=== PATIENT | male | born 1955 | race Caucasian/White ===

== ENCOUNTER 2017-12-04 05:53 | Inpatient (IN) | payer BC, OTHER ==
[2017-11-06 08:48] VITALS: BMI 36.0
--- NOTE | 2017-11-06 09:30 | PAT Medication Instructions ---
Service Date Nov 06, 2017. Current Home Medication List Albuterol Sulfate (Proair Respiclick), 2 PUFF INH Q4 PRN for SOB/Wheezing Allopurinol (Zyloprim), 300 MG PO QAM Atorvastatin (Lipitor), 20 MG PO QAM Betamethasone Dip (Betamethasone Dipropionat), 1 DOSE TOP UD PRN for prn Econazole Nitrate (Econazole Nitrate Crm 1% 30 Gm), 1 DOSE TOP UD PRN for prn Ferrous Sulfate (Iron), 1 TAB PO QAM Gabapentin (Neurontin), 600 MG PO TID Insulin Human Lispro (Insulin Humalog Pump ), 1 EA N/A UD Losartan Potassium (Cozaar), 100 MG PO QAM Magnesium (Magnesium 250 mg), 1 TAB PO HS Morphine Sulfate (Morphine Sulfate ER), 15 MG PO BID Multiple Vitamins W/ Minerals (Multivitamin Adults 50+), 1 TAB PO QAM [place]-3 Fatty Acids (Fish Oil), 1,200 MG PO BID Omeprazole (Prilosec), 40 MG PO QAM Vitamin E (Bhuh-K-Zafuj 1000), 2,000 UNITS PO QAM Warfarin Sod (Jantoven), 7.5 MG PO SUN, T,TH,SAT Warfarin Sodium (Warfarin Sodium), 3.75 TAB PO MWF Medication Instructions For Your Scheduled Surgery -Continue basal rate as usual, DO NOT BOLUS THE MORNING OF SURGERY: Insulin Human Lispro (Insulin Humalog Pump ), 1 EA N/A UD -Contact your prescriber for instructions for: Warfarin Sod (Jantoven), 7.5 MG PO SUN, T,TH,SAT Warfarin Sodium (Warfarin Sodium), 3.75 TAB PO MWF - Hold the following medications 2 weeks prior to surgery: Vitamin E (Ykil-E-Ctcvu 1000), 2,000 UNITS PO QAM [place]-3 Fatty Acids (Fish Oil), 1,200 MG PO BID - Hold the following medications 24 hours prior to surgery: Betamethasone Dip (Betamethasone Dipropionat), 1 DOSE TOP UD PRN for prn Econazole Nitrate (Econazole Nitrate Crm 1% 30 Gm), 1 DOSE TOP UD PRN for prn - Hold the following medications the morning of surgery: Multiple Vitamins W/ Minerals (Multivitamin Adults 50+), 1 TAB PO QAM Losartan Potassium (Cozaar), 100 MG PO QAM Ferrous Sulfate (Iron), 1 TAB PO QAM - Take the following medications the morning of surgery with a sip of water: Omeprazole (Prilosec), 40 MG PO QAM Allopurinol (Zyloprim), 300 MG PO QAM Atorvastatin (Lipitor), 20 MG PO QAM Morphine Sulfate (Morphine Sulfate ER), 15 MG PO BID Albuterol Sulfate (Proair Respiclick), 2 PUFF INH Q4 PRN for SOB/Wheezing (if needed, and bring with you to the hospital) Gabapentin (Neurontin), 600 MG PO TID - Take the following medications as scheduled the night before surgery: Morphine Sulfate (Morphine Sulfate ER), 15 MG PO BID Albuterol Sulfate (Proair Respiclick), 2 PUFF INH Q4 PRN for SOB/Wheezing (if needed) Magnesium (Magnesium 250 mg), 1 TAB PO HS Gabapentin (Neurontin), 600 MG PO TID If you have any questions please call us at [phone] or [phone] or [phone]
[2017-11-06 10:15] LABS: BASO % 0.5 %; BASO ABS # 0.04 K/uL (0-0.2); EOS % 2.7 %; HEMATOCRIT 43.1 % (42-52); HEMOGLOBIN 14.8 g/dL (14.0-18.0); IG# 0.02 K/uL (0.00-0.02); LYMPH % 24.9 %; LYMPH ABS # 1.82 K/uL (1.2-3.4); MEAN CELL VOLUME 89.6 fL (80-100); MEAN CORPUSCULAR HEMOGLOBIN 30.8 pg (25-34); MEAN CORPUSCULAR HGB CONC 34.3 g/dl (32-36); MEAN PLATELET VOLUME 9.4 fL (7.4-10.4); MONO ABS # 0.51 K/uL (0.11-0.59); NEUT % 64.6 %; NEUT ABS # 4.72 K/uL (1.4-6.5); PLATELET COUNT 207 K/uL (130-400); RED CELL DISTRIBUTION WIDTH CV 13.1 % (11.5-14.5); RED CELL DISTRIBUTION WIDTH SD 42.8 fL (36.4-46.3); WHITE BLOOD COUNT 7.31 K/uL (4.8-10.8)
[2017-12-04] VITALS (15 sets, daily range): BP systolic 121–170; BP diastolic 65–84; PULSE 67–93; TEMP 36.3–37; O2SAT 94–98; BMI 36.0; BMI 36.7
[~2017-12-04] VITALS: Ht 170.2 cm; Wt 106.3 kg
[~2017-12-04 05:53] MED LIST: ALBU18002 INH; ALLO300T2 PO; ATOR-22 PO; DPRSO15 TOP; FERR1TAB61 PO; GABA-113 PO; INSPMPHMLG; LOSA1TAB38 PO; MAGN250T3 PO; MRPSR15 PO; MULT-916 PO; OMEG120013 PO; PRLSR20 PO; SPCCR30 TOP; WARF-285 PO; WARF7.5T4 PO; [UNRECOGNIZED DRUG - CODE] PO
[2017-12-04] MEDS ORDERED: CEFAZOLIN 2000MG IV PUSH 10 ML IV SCH (06:00)
[2017-12-04] MEDS ORDERED: LACTATED RINGER'S 1000ML 1,000 ML IV SCH (06:00)
[2017-12-04] MEDS ORDERED: lovenox SQ (06:21)
[2017-12-04 06:53] LABS: PTT PATIENT 29.7 SECONDS (21.0-31.0)
[2017-12-04] MEDS ORDERED: SODIUM CHLORIDE 0.9% PF 50 ML VIAL ONE (07:05)
[2017-12-04] MEDS ORDERED: BACITRACIN 50000 UNIT VIAL ONE (07:05)
[2017-12-04] MEDS ORDERED: LIDOCAINE HCL 2% 2 ML VIAL (20MG/ML) ONE (07:06)
[2017-12-04] MEDS ORDERED: DEXAMETHASONE SOD INJ 4 MG/ML VIAL ONE (07:06)
[2017-12-04] MEDS ORDERED: GLYCOPYRROLATE INJ 0.2 MG/ML VIAL ONE ×2 (07:06→15:39)
[2017-12-04] MEDS ORDERED: ONDANSETRON INJ 2 MG/ML 2 ML VIAL ONE ×2 (07:06→15:39)
[2017-12-04] MEDS ORDERED: MIDAZOLAM HCL 1 MG/ML 2ML VIAL ONE (07:06)
[2017-12-04] MEDS ORDERED: PROPOFOL IV EMULSION 10 MG/ML 20 ML VIAL IV ONE (07:06)
[2017-12-04] MEDS ORDERED: NEOSTIGMINE METHYLSULFATE 1 MG/ML 10ML VIAL ONE (07:06)
[2017-12-04] MEDS ORDERED: HYDROmorphone INJ 2 MG/ML SYR/VIAL ONE (07:07)
[2017-12-04] MEDS ORDERED: LARYING-O-JET KIT (LTA) ONE (07:07)
[2017-12-04] MEDS ORDERED: SODIUM CHLORIDE 0.9% INJ 10 ML VIAL ONE (07:07)
[2017-12-04] MEDS ORDERED: FENTANYL CITRATE INJ 50 MCG/1 ML 2 ML VIAL ONE (07:07)
[2017-12-04] MEDS ORDERED: NovoLIN-R INSULIN PER UNIT CHARGE ONE ×2 (07:16→07:17)
--- NOTE | 2017-12-04 07:23 | History & Physical Bridge Note ---
H&P Re-Evaluation Bridge Note: I have examined the patient, reviewed the History & Physical and in the interval since the performance of the History & Physical I have noted the following changes of clinical significance: No changes noted
--- NOTE | 2017-12-04 07:24 | History and Physical ---
History & Physical Date Dec 04, 2017. Chief Complaint Neck and arm pain History of Present Illness The patient is a 62 year old male with complaints of neck and arm pain Past Medical/Surgical History Medical Problems: (1) Thoracic spinal stenosis Additional History Hepatic Disease: No Endocrine Disorder: No Kidney Disease: No Hypertension: Yes Heart Disease: No Bleeding Tendencies: No Infectious Diseases: No Allergies Coded Allergies: Diclofenac (Verified Allergy, Unknown, AFFECTED LIVER FUNCTION, 12/04/17) Penicillins (Verified Allergy, Unknown, RASH, 12/04/17) Azithromycin (Verified Adverse Reaction, Intermediate, when combined with voltaren had chemical hepatitis, 12/04/17) Meperidine (Verified Adverse Reaction, Unknown, SEVERE N/V, 12/04/17) Home Medications Scheduled Allopurinol (Zyloprim), 300 MG PO QAM Atorvastatin (Lipitor), 20 MG PO QAM Ferrous Sulfate (Iron), 1 TAB PO QAM Gabapentin (Neurontin), 600 MG PO TID Insulin Human Lispro (Insulin Humalog Pump ), 1 EA N/A UD Losartan Potassium (Cozaar), 100 MG PO QAM Magnesium (Magnesium 250 mg), 1 TAB PO HS Morphine Sulfate (Morphine Sulfate ER), 15 MG PO BID Multiple Vitamins W/ Minerals (Multivitamin Adults 50+), 1 TAB PO QAM [place]-3 Fatty Acids (Fish Oil), 1,200 MG PO BID Omeprazole (Prilosec), 40 MG PO QAM Vitamin E (Mktv-J-Lxhmf 1000), 2,000 UNITS PO QAM Warfarin Sod (Jantoven), 7.5 MG PO SUN, ,,SAT Warfarin Sodium (Warfarin Sodium), 3.75 TAB PO MWF [lovenox], SQ BID Scheduled PRN Albuterol Sulfate (Proair Respiclick), 2 PUFF INH Q4 PRN for SOB/Wheezing Betamethasone Dip (Betamethasone Dipropionat), 1 DOSE TOP UD PRN for prn Econazole Nitrate (Econazole Nitrate Crm 1% 30 Gm), 1 DOSE TOP UD PRN for prn Physical Examination Skin: warm/dry, no rash Eyes: normal inspection, EOMI, sclerae normal ENT: normal ENT inspection, pharynx normal Head: normocephalic, atraumatic Neck: supple, no adenopathy, trachea midline Respiratory/Chest: lungs clear, normal breath sounds, no respiratory distress Cardiovascular: regular rate, rhythm, no edema, no murmur Abdomen / GI: normal bowel sounds, non tender Back: normal inspection Extremities: normal inspection, normal range of motion Neurologic/Psych: no motor/sensory deficits, alert, normal reflexes, oriented x 3 Diagnosis Cervical spinal stenosis Plan of Treatment ACDF C3 4 with corpectomy of C5
[2017-12-04] MEDS ORDERED: CLINDAMYCIN 600 MG/54 ML D5W IV ONE (07:29)
[2017-12-04] MEDS ORDERED: ATROPINE SULFATE 0.1 MG/ML 5ML SYR IV PRN (07:30)
[2017-12-04] MEDS ORDERED: ONDANSETRON INJ 2 MG/ML 2 ML VIAL IV PRN (07:30)
[2017-12-04] MEDS ORDERED: NURSING VERBAL MED ORDER ONE ×2 (07:30→21:00)
[2017-12-04] MEDS ORDERED: EpHEDrine SULFATE INJ 50 MG/ML AMP IV PRN (07:30)
[2017-12-04] MEDS ORDERED: EpHEDrine SULFATE 50MG/5ML SYR ONE ×2 (07:49→09:17)
[2017-12-04] MEDS ORDERED: PHENYLEPHRINE 100MCG/ML 5ML SYR ONE (09:04)
[2017-12-04] MEDS ORDERED: FLOSEAL HEMOSTATIC MATRIX 5ML TOP ONE (09:31)
--- NOTE | 2017-12-04 09:34 | [facility] Operative Report ---
Operative Report Operative Date Dec 04, 2017. Pre-Operative Diagnosis Cervical Spinal Stenosis Post-Operative Diagnosis Cervical Spinal Stenosis Procedure(s) Performed #1 anterior cervical corpectomy C5. #2 anterior cervical discectomy C3 4. #3 anterior cervical arthrodesis C3 to C4 and C4 to C6. #4 placement peek cage 8 mm in height C3 4 and 23 mm height at C4 to C6. #5 placement of locally harvested morcellized autograft combined with ostial amp in the interbody cages. #6 application of herring plate and screws from C3 to C6. Surgeon Dr. Zamudio Sales And Marketing Professional Surgeon(s) Gaby Vidal PA-C Estimated Blood Loss 10 ml Findings Severe spinal stenosis Specimens None per surgeon Description of Procedure Patient was met with preoperatively case discussed all questions addressed. After informed consent obtained patient was taken to the operative suite underwent intubation placed in a supine position the Kevin table with the head in [place] headholder. All bony prominences well-padded eyes inspected to ensure no external pressure placed upon them. This point the anterior cervical spine prepped draped nostril fashion. With the assistance of fluoroscopy identified the C3 4 disc space and a longitudinal incision was placed along the right anterior aspect of the cervical spine overlying this region. Sharp dissection with the assistance of bipolar cautery was performed onto an exposing the anterior cervical spine from C3 to see 6. Self-retaining retractors placed. Then performed a complete discectomy of C5 6 out to the uncovertebral joints bilaterally followed by C45. Then placed distracting pins and C4 and C6 to distract across the C5 vertebral body. Complete corpectomies and performed including removal of all posterior annular fibers and longitudinal ligament and bilateral foraminotomies. Endplates were then burred to subcortical bleeding bone and a 23 mm peek cage filled with locally harvested morcellized autograft and ostial amp bone graft tapped in position. Distracting apparatus was removed. We proceeded to see 34. Again a complete discectomy performed out to the uncovertebral joints bilaterally. I removed all posterior inner fibrous longitudinal ligament bilateral foraminotomies performed. An plates burred to subcortical bleeding bone and a 8 mm peek cage filled with locally harvested morcellized autograft and ostial amp bone graft tapped in position. All distracting apparatus was removed osteophytes burred to smooth cortical surface and a herring plate and screws applied with the assistance of fluoroscopy. Incision was in copious irrigated explored to ensure there is no damage to surrounding structures remaining bleeding. A 15 round BRAIN drain inserted. Incision was then closed with 2 Vicryl in the fascia and 4 Monocryl for final skin closure. Steri-Strips sterile dressings placed. Patient we can take PACU stable condition. Please note Gaby Glover was present throughout the entire procedure involved in patient positioning complex portions of the surgery and final skin closure. I attest to the content of the Intraoperative Record and any orders documented therein. Any exceptions are noted below.
[2017-12-04] MEDS ORDERED: NALOXONE HCL 0.4 MG/1 ML VIAL/CARP IV PRN (09:45)
[2017-12-04] MEDS ORDERED: DO NOT ADMINISTER PNEUMOCOCCAL VACCINE PRN (09:45)
[2017-12-04] MEDS ORDERED: RACEPINEPHRINE 2.25% NEBU SOLN 0.5 ML VIAL INH PRN (09:45)
[2017-12-04] MEDS ORDERED: LORAZEPAM 0.5 MG TAB PO PRN (09:45)
[2017-12-04] MEDS ORDERED: DO NOT ADMINISTER FLU VACCINE PRN (09:45)
[2017-12-04] MEDS ORDERED: MAGNESIUM HYDROXIDE SUSP 30 ML UDC PO PRN (09:45)
[2017-12-04] MEDS ORDERED: HYDROmorphone INJ 1 MG/ML SYR IV PRN (09:45)
[2017-12-04] MEDS ORDERED: ACETAMINOPHEN IV 100 ML IV PRN (09:45)
[2017-12-04] MEDS ORDERED: DEXAMETHASONE INJ 8 MG in SYRINGE 0 ML IV PRN (09:45)
[2017-12-04] MEDS ORDERED: DiphenhydrAMINE HCL 50 MG/ML VIAL IV PRN (09:45)
[2017-12-04] MEDS ORDERED: ROCURONIUM BROMIDE 10 MG/ML 5 ML VIAL IV ONE (09:54)
--- NOTE | 2017-12-04 09:54 | DIAGNOSTIC IMAGING REPORT ---
Cervical SPINE, INTRAOPERATIVE FLUOROSCOPY HISTORY: C3-C6 ACDF with C5 corpectomy. FLUOROSCOPY TIME: 13 seconds. FINDINGS: Intraoperative fluoroscopy was provided for the cervical spine. 2 fluoroscopic spot images were obtained. Anterior cervical discectomy and fusion from C3 through C6 with a C5 corpectomy. The hardware appears intact. IMPRESSION: Fluoroscopy provided for a C3-C6 ACDF.. Electronically signed by: Corwin Valenzuela M.D. 12/04/2017 9:53 AM Dictated Date/Time: 12/04/2017 9:52 AM
[2017-12-04] MEDS: FENTANYL CITRATE INJ 50 MCG/1 ML 2 ML VIAL IV PRN ×4 (10:08→10:24)
[2017-12-04] MEDS: HYDROmorphone INJ 1 MG/ML SYR IV PRN ×2 (10:28→10:34)
[2017-12-04] MEDS ORDERED: GLUCOSE 40% GEL 15 GM TUBE PO PRN (12:00)
[2017-12-04] MEDS ORDERED: GLUCOSE 10 TABS/TUBE PO PRN (12:00)
[2017-12-04] MEDS ORDERED: DEXTROSE 50% 50 ML SYR IV PRN (12:00)
[2017-12-04] MEDS ORDERED: ALBUTEROL HFA 8 GM INHALER INH PRN (12:00)
[2017-12-04] MEDS ORDERED: GLUCAGON FOR INJ 1 MG VIAL SQ PRN (12:00)
[2017-12-04] MEDS ORDERED: INSULIN HUMAN LISPRO (humaLOG) 100 UNITS/ML VIAL SC PRN (12:00)
[2017-12-04] MEDS ORDERED: PHARMACY GLYCEMIC MGMT CONSULT PRN (12:10)
--- NOTE | 2017-12-04 12:20 | Anesthesiology Progress Note ---
Anesthesia Post Op Note Date & Time Dec 04, 2017 at 12:20 Vital Signs Pain Intensity: 3 Vital Signs Past 12 Hours Date Time Temp Pulse Resp B/P (MAP) Pulse Ox O2 Delivery O2 Flow Rate FiO2 12/04/17 11:46 70 16 142/73 (96) 97 Humidified Oxygen 2.0 12/04/17 11:15 Nasal Cannula 2.0 Humidified Oxygen 12/04/17 11:15 37.0 73 14 149/66 96 Nasal Cannula 2.0 Humidified Oxygen 12/04/17 11:15 Nasal Cannula 2.0 12/04/17 11:00 55 12 133/61 97 Nasal Cannula 3 12/04/17 10:50 36.9 63 12 160/68 99 Nasal Cannula 3 12/04/17 10:40 77 15 150/71 99 Nasal Cannula 4 12/04/17 10:30 78 18 141/61 99 Nasal Cannula 4 12/04/17 10:20 58 12 148/70 99 Nasal Cannula 4 12/04/17 10:10 61 13 146/67 99 Oxymask 10 12/04/17 10:00 78 14 139/74 100 Oxymask 10 12/04/17 09:50 70 12 137/64 100 Oxymask 10 12/04/17 09:43 36.6 86 13 135/69 99 Oxymask 10 12/04/17 06:24 36.3 74 16 170/83 98 Room Air Notes Mental Status: alert / awake / arousable, participated in evaluation Pt Amnestic to Procedure: Yes Nausea / Vomiting: adequately controlled Pain: adequately controlled Airway Patency, RR, SpO2: stable & adequate BP & HR: stable & adequate Hydration State: stable & adequate Anesthetic Complications: no major complications apparent
--- NOTE | 2017-12-04 12:49 | Medical Consult ---
Consultation Date of Consultation: Dec 04, 2017. Attending Physician: David Zamudio D.O. Reason for Consultation: Post-op medical management History of Present Illness This is a 62yo M with a PMH of DM I, Factor V Leiden mutation (on coumadin, s/p IVF filter placement in 2014), DAHIANA, HTN, HLD, OA and cervical and thoracic spinal stenosis who is POD#0 s/p C3-C4 anterior cervical discectomy and fusion. Doing well post-operatively. Denies any back pain, fever, chills, CP, SOB, abd pain, nausea, vomiting, numbness/paresthesias of extremities or LE swelling.Follows with [facility] in [place] for insulin pump management. Follows with Dr. Elmore (cardio) for management of Factor V mutation and h/o PEs. Per chart review, Dr. Elmore was to discuss pre and post op anticoagulation management with Dr. Zamudio due to patient's hypercoagulable state. Patient last took warfarin 5 days ago. Past Medical/Surgical History Medical Problems: (1) Cervical spinal stenosis Status: Chronic (2) Chronic anticoagulation Status: Chronic (3) Chronic lower back pain Status: Chronic (4) DM I (diabetes mellitus, type I) Status: Chronic (5) Factor 5 Leiden mutation, heterozygous Status: Chronic (6) HLD (hyperlipidemia) Status: Chronic (7) HTN (hypertension) Status: Chronic (8) DAHIANA on CPAP Status: Chronic (9) Osteoarthritis Status: Chronic (10) Thoracic spinal stenosis Status: Chronic Surgical Problems: (1) S/P IVC filter Status: Chronic Family History Bleeding disorder Diabetes mellitus Hypertension Social History Smoking Status: Never Smoker Alcohol Use: occasionally Marital Status: Housing Status: lives with significant other Occupation Status: retired Allergies Coded Allergies: Diclofenac (Verified Allergy, Unknown, AFFECTED LIVER FUNCTION, 12/04/17) Penicillins (Verified Allergy, Unknown, RASH, 12/04/17) Azithromycin (Verified Adverse Reaction, Intermediate, when combined with voltaren had chemical hepatitis, 12/04/17) Meperidine (Verified Adverse Reaction, Unknown, SEVERE N/V, 12/04/17) Home Medications Reported Home Medications Medications Dose Route/Sig Max Daily Dose Days Date Category Dose Instructions [lovenox] 40 Mg SQ BID 12/04/17 Reported Iron (Ferrous Sulfate) 45 Mg Tab 1 Tab PO QAM 11/06/17 Reported Brqm-Z-Jseba 1000 (Vitamin E) 1,000 Unit Cap 2,000 Units PO QAM 11/06/17 Reported Econazole Nitrate Crm 1% 30 Gm (Econazole Nitrate) 90 Appln/30 Gm Cr 1 Dose TOP UD PRN 11/06/17 Reported Betamethasone Dipropionat (Betamethasone Dip) 45 Appln/15 Gm Oint 1 Dose TOP UD PRN 11/06/17 Reported Insulin Humalog Pump (Insulin Human Lispro) Pump 1 Ea N/A UD 11/06/17 Reported insulin pump Prilosec (Omeprazole) 20 Mg Capcr 40 Mg PO QAM 11/06/17 Reported Proair Respiclick (Albuterol Sulfate) 108 Mcg/Act Aer 2 Puff INH Q4 PRN 11/06/17 Reported Morphine Sulfate ER (Morphine Sulfate) 15 Mg Tabcr 15 Mg PO BID 11/06/17 Reported Multivitamin Adults 50+ (Multiple Vitamins W/ Minerals) 1 Tab Tab 1 Tab PO QAM 10/28/15 Reported Lipitor (Atorvastatin Calcium) 20 Mg Tab 20 Mg PO QAM 10/28/15 Reported Magnesium 250 mg (Magnesium) 1 Tab Tab 1 Tab PO HS 10/28/15 Reported Fish Oil ([place]-3 Fatty Acids) 1,200 Mg Cap 1,200 Mg PO BID 10/28/15 Reported Jantoven (Warfarin Sodium) 7.5 Mg Tab 7.5 Mg PO SUN, T,TH,SAT 10/28/15 Reported Warfarin Sodium 3 Mg Tab 3.75 Tab PO MWF 90 10/28/15 Reported Zyloprim (Allopurinol) 300 Mg Tab 300 Mg PO QAM 10/28/15 Reported Cozaar (Losartan Potassium) 100 Mg Tab 100 Mg PO QAM 10/28/15 Reported Neurontin (Gabapentin) 300 Mg Cap 600 Mg PO TID 10/28/15 Reported Current Inpatient Medications Current Inpatient Medications Medications (Trade) Dose Ordered Sig/Bud Route Start Time Stop Time Status Last Admin Dose Admin Cefazolin Sodium 10 ml @ 2.5 mls/min PREOP IV 12/04/17 06:00 12/04/17 18:00 Fentanyl Citrate (Fentanyl Inj) 25 mcg Q5M PRN IV 12/04/17 07:30 12/04/17 12:30 12/04/17 10:24 25 MCG Hydromorphone HCl (Dilaudid Inj) 0.5 mg Q5M PRN IV 12/04/17 07:30 12/04/17 12:30 12/04/17 10:34 0.5 MG Ondansetron HCl (Zofran Inj) 4 mg ONE PRN IV 12/04/17 07:30 12/04/17 12:30 Ephedrine Sulfate (EpHEDrine SULFATE INJ) 5 mg Q5M PRN IV 12/04/17 07:30 12/04/17 12:30 Atropine Sulfate (Atropine Sulfate 0.1mg/ml Inj) 0.5 mg Q1M PRN IV 12/04/17 07:30 12/04/17 12:30 Racepinephrine (Raccemic Epinephrine 2.25% 0.5ML Neb) 0.5 ml ONE PRN INH 12/04/17 09:45 12/04/17 23:59 Acetaminophen 100 ml @ 400 mls/hr Q8H PRN IV 12/04/17 09:45 01/03/18 09:44 Hydromorphone HCl (Dilaudid Inj) 0.5mg IV for moder... Q3H PRN IV 12/04/17 09:45 12/18/17 09:44 Magnesium Hydroxide (Milk Of Magnesia Susp) 30 ml DAILY PRN PO 12/04/17 09:45 01/03/18 09:44 Docusate Sodium (coLACE CAP) 100 mg BID PO 12/04/17 21:00 01/03/18 20:59 Ondansetron HCl (Zofran Inj) 4 mg Q6 PRN IV 12/04/17 09:45 01/03/18 09:44 Scopolamine (Transderm-Scop Patch) 1.5 mg Q3D@0900 TD 12/04/17 12:30 01/03/18 12:29 Clindamycin Phosphate 600 mg/ Dextrose 54 ml @ 100 mls/hr Q8H IV 12/04/17 16:00 12/05/17 08:33 Lorazepam (Ativan Tab) 0.5 mg Q8H PRN PO 12/04/17 09:45 01/03/18 09:44 Lorazepam 0.5 mg/ Syringe 1 ml @ 1 mls/min Q8H PRN IV 12/04/17 09:45 01/03/18 09:44 Diphenhydramine HCl (Benadryl Inj) 25 mg Q6H PRN IV 12/04/17 09:45 01/03/18 09:44 Pneumococcal Polysaccharide Vaccine 1 ea PRN PRN N/A 12/04/17 09:45 01/03/18 09:44 Influenza Virus Vacc Triv Types A&B 1 ea PRN PRN N/A 12/04/17 09:45 01/03/18 09:44 Sodium Chloride 1,000 ml @ 80 mls/hr [id number] IV 12/04/17 12:00 12/05/17 09:33 Oxycodone HCl (Roxicodone Immediate Rel Tab) 5mg for pain scale 4-6 1... Q4H PRN PO 12/04/17 09:45 12/18/17 09:44 Polyethylene (Miralax Powder Packet) 17 gm DAILY PO 12/06/17 09:00 01/05/18 08:59 Bisacodyl (Dulcolax Tab) 5 mg DAILY PRN PO 12/06/17 06:00 01/05/18 05:59 Bisacodyl (Dulcolax Supp) 10 mg DAILY PRN DE 12/06/17 06:00 01/05/18 05:59 Dexamethasone Sodium Phosphate 8 mg/Syringe 2 ml @ 1 mls/min ONE PRN IV 12/04/17 09:45 12/04/17 23:59 Naloxone HCl (Narcan Inj) 0.1 mg Q5M PRN IV 12/04/17 09:45 01/03/18 09:44 Miscellaneous (Remove Transderm-Scop Patch) 1 ea Q3D@0859 N/A 12/04/17 12:29 01/03/18 12:28 Miscellaneous Information (Check Scopolamine Patch Placement) 1 ea QS N/A 12/04/17 16:00 01/03/18 15:59 Allopurinol (Zyloprim Tab) 300 mg QAM PO 12/05/17 09:00 01/04/18 08:59 Atorvastatin Calcium (Lipitor Tab) 20 mg QAM PO 12/05/17 09:00 01/04/18 08:59 Gabapentin (Neurontin Tab) 600 mg TID PO 12/04/17 14:00 01/03/18 13:59 Losartan Potassium (coZAAR TAB) 100 mg QAM PO 12/05/17 09:00 01/04/18 08:59 Morphine Sulfate (Oramorph Sr Tab) 15 mg BID PO 12/04/17 21:00 12/18/17 20:59 Albuterol (Ventolin Hfa Inhaler) 2 puffs Q4H PRN INH 12/04/17 12:00 01/03/18 11:59 Pantoprazole Sodium (Protonix Tab) 40 mg QAM PO 12/05/17 09:00 01/04/18 08:59 Insulin Human Lispro (HumaLOG INSULIN PUMP) 1 ea ACHS N/A 12/04/17 12:00 01/03/18 11:59 Insulin Human Lispro (humaLOG) SLIDING SCALE PRN PRN SC 12/04/17 12:00 01/03/18 11:59 Glucose (Glucose 40% Gel) UD PRN PO 12/04/17 12:00 01/03/18 11:59 Glucose (Glucose Chew Tab) 1 tabs UD PRN PO 12/04/17 12:00 01/03/18 11:59 Glucagon (Glucagon Inj) 1 mg UD PRN SQ 12/04/17 12:00 01/03/18 11:59 Dextrose (Dextrose 50% 50ML Syringe) 50 ml UD PRN IV 12/04/17 12:00 01/03/18 11:59 Miscellaneous Information (Consult Glycemic Management Pharmacy) 1 ea UD PRN N/A 12/04/17 12:10 01/03/18 12:09 Review of Systems Ten systems reviewed and negative except as noted in the HPI. Physical Exam Date Time Temp Pulse Resp B/P (MAP) Pulse Ox O2 Delivery O2 Flow Rate FiO2 12/04/17 11:46 70 16 142/73 (96) 97 Humidified Oxygen 2.0 12/04/17 11:15 Nasal Cannula 2.0 Humidified Oxygen 12/04/17 11:15 37.0 73 14 149/66 96 Nasal Cannula 2.0 Humidified Oxygen 12/04/17 11:15 Nasal Cannula 2.0 12/04/17 11:00 55 12 133/61 97 Nasal Cannula 3 12/04/17 10:50 36.9 63 12 160/68 99 Nasal Cannula 3 12/04/17 10:40 77 15 150/71 99 Nasal Cannula 4 12/04/17 10:30 78 18 141/61 99 Nasal Cannula 4 12/04/17 10:20 58 12 148/70 99 Nasal Cannula 4 12/04/17 10:10 61 13 146/67 99 Oxymask 10 12/04/17 10:00 78 14 139/74 100 Oxymask 10 12/04/17 09:50 70 12 137/64 100 Oxymask 10 12/04/17 09:43 36.6 86 13 135/69 99 Oxymask 10 12/04/17 06:24 36.3 74 16 170/83 98 Room Air General Appearance: WD/WN, no apparent distress, + pertinent finding (Resting comfortably with c-collar in place) Head: normocephalic, atraumatic Eyes: normal inspection, PERRL, sclerae normal ENT: normal ENT inspection, hearing grossly normal, pharynx normal (moist mucous membranes ) Neck: + pertinent finding (C collar in place. BRAIN drain observed with sanguinous output. ) Respiratory/Chest: chest non-tender, lungs clear, normal breath sounds, no respiratory distress, no accessory muscle use Cardiovascular: regular rate, rhythm, normal peripheral pulses, + systolic murmur Abdomen/GI: non tender, soft, no organomegaly Extremities/Musculoskelatal: normal inspection, no calf tenderness, no pedal edema, + pertinent finding (SCDs in place bilaterally ) Neurologic/Psych: no motor/sensory deficits, alert, normal mood/affect, oriented x 3 Skin: normal color, warm/dry Laboratory Results Last 24 Hours Test 12/04/17 06:13 12/04/17 06:33 12/04/17 07:08 12/04/17 07:31 Bedside Glucose 200 mg/dl 225 mg/dl 164 mg/dl Prothrombin Time 10.9 SECONDS Prothromb Time International Ratio 1.0 Activated Partial Thromboplast Time 29.7 SECONDS Partial Thromboplastin Ratio 1.1 Test 12/04/17 08:22 12/04/17 09:24 12/04/17 09:56 12/04/17 11:59 Bedside Glucose (other) 143 mg/dl 188 mg/dl Bedside Glucose 189 mg/dl 272 mg/dl Assessment & Plan This is a 62yo M with a PMH of DM I, Factor V Leiden mutation (on coumadin, s/p IVF filter placement in 2014), DAHIANA, HTN, HLD, OA and cervical and thoracic spinal stenosis who is POD#0 s/p anterior cervical discectomy and fusion. Cervical/thoracic spinal stenosis s/p C3-C4 discectomy and fusion: -Pt is doing well post-operatively -Surgery performed by Dr. Zamudio -Per ortho for pain control, wound care, anticoagulation and activities -Monitor H&H, continue incentive spirometry, PT/OT when appropriate Factor V Leiden mutation: -Coumadin held 5 days pre-operatively -S/p IVC filter placement in 2014 -No PEs since then -Dr Elmore and Devin discussed plans to resume coumadin, per patient -Plan to resume warfarin tomorrow and give SQ heparin -Recommend resuming as soon as possible due to hypercoagulable state DM I: -Pump managed by [facility] in [place] -Recently placed on insulin pump -Received basal dose overnight; was stopped pre-operatively at 7am -Glycemic control consult placed for pump management DAHIANA: -Brought CPAP from home -Will hold for now s/p cervical spine surgery HTN: -Normotensive -Losartan dose held this AM -Will give missed home dose if indication -Resume home schedule tomorrow HLD: -Cont statin OA, chronic back pain: -Cont home pain regimen PCP: [facility] Dispo: Per ortho Patient seen in collaboration with Dr. Perry. Please see addendum. Agree with above consult note. Briefly 62M is s/p cervical spine surgery. pain is under control with pain meds. Afebrile. No chest pain or sob or cough. No nausea. p/e Ge not in distress Neck in neck collar. 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
[2017-12-04] MEDS: GABAPENTIN 600 MG TAB PO SCH ×2 (13:50→21:36)
[2017-12-04] MEDS: OXYCODONE HCL IR 5 MG TAB (IMMEDIATE RELEASE) PO PRN (13:50)
[2017-12-04] MEDS: SCOPOLAMINE 1.5 MG TDSY TD SCH (13:51)
[2017-12-04] MEDS ORDERED: RXC5 PO (14:26)
--- NOTE | 2017-12-04 14:27 | Discharge Instructions ---
Discharge Instructions Date of Service Dec 04, 2017. Admission Reason for Admission: Spinal Stenosis Discharge Discharge Diagnosis / Problem: cervical stenosis Discharge Goals Goal(s): Improve function Activity Recommendations Activity Limitations: per Instructions/Follow-up section . Instructions / Follow-Up Instructions / Follow-Up ACTIVITY RECOMMENDATIONS: SELF CARE INSTRUCTIONS AFTER CERVICAL FUSIONS 1. No smoking. Smoking drastically decreases the chance of a solid fusion. 2. No bending, lifting more than 5 pounds, or twisting (roll like a log when turning in bed). 3. You may shower 3 days after surgery. Thoroughly dry wound. Do not soak in the tub. 4. Cervical collar: Must be worn at all times including sleeping. You may remove the brace only to bath, eat and if you are sitting in a recliner. 5. Please walk as much as you can for exercise. Gradually increase the distance that you walk as your endurance increases. SPECIAL CARE INSTRUCTIONS: VERY IMPORTANT TO READ AND REVIEW A. Do not take any anti-inflammatory medications (i.e. Indocin, Advil, Aspirin, Naprosyn, Aleve, Motrin, etc.) as these may inhibit the chance of a solid fusion. Tylenol is okay to take. B. Your surgical incision has been closed with a cosmetic suture under the skin that will dissolve in about 6 weeks. In 14 days, you can use a pair of clean scissors and cut the suture that is left outside of the skin at the ends of your incision. C. Complications are uncommon, but please contact us if you have any signs or symptoms of: 1. wound infection (fever higher than 102.5 degrees F, redness, separation of wound, drainage, or increasing pain from the incision) 2. blood clots in legs (pain, swelling, redness and warmth in legs) 3. urinary tract infection (fever higher than 102.5 degrees, burning upon urination or increased frequency of urination) 4. nerve problems (inability to walk on your toes or heels, numbness, loss of bowel or bladder control) 5. any other symptoms that concern you. D. Please call the office at if you have any concerns or questions about your operation or recovery. MANAGING PAIN AFTER SPINAL SURGERY 1. Narcotic medication is intended for short-term use and will be provided for surgical pain. Surgical pain usually lasts for a period of 4-6 weeks. Narcotic medication includes Percocet, Vicodin, Darvocet, Tylenol #3 or Lortab. 2. Longer-term pain is more appropriately treated with non-narcotic medication such as Tylenol ES. 3. Muscle spasm is not appropriately treated with narcotics. Muscle relaxers such as Soma, Flexeril or Skelaxin can be used along with Tylenol ES. 4. Remember that we all live with some "aches and pains". This is not unusual or uncommon after an injury or as we get older. 5. We will provide appropriate medication within the normal guidelines of their prescribed use. We will also be very cautious and aware of potential abuse and extended duration of patients' medication needs. 6. Please allow 2-3 days to process refills. Prescriptions will not be mailed but must be picked up at the office. FOLLOW UP VISIT: Keep your scheduled follow-up appointment. Any questions, please call the office at . Current Hospital Diet Patient's current hospital diet: Clear Liquid Diet Discharge Diet Recommended Diet: Regular Diet Procedures Procedures Performed: #1 anterior cervical corpectomy C5. #2 anterior cervical discectomy C3 4. #3 anterior cervical arthrodesis C3 to C4 and C4 to C6. #4 placement peek cage 8 mm in height C3 4 and 23 mm height at C4 to C6. #5 placement of locally harvested morcellized autograft combined with ostial amp in the interbody cages. #6 application of herring plate and screws from C3 to C6. Pending Studies Studies pending at discharge: no Medical Emergencies . Who to Call and When: Medical Emergencies: If at any time you feel your situation is an emergency, please call 911 immediately. . Non-Emergent Contact Non-Emergency issues call your: Primary Care Provider . "Provider Documentation" section prepared by David Zamudio. . VTE Core Measure Inpt VTE Proph given/why not?: Unfractionated heparin ARIANNE, Damon Winn, SCD 's
--- NOTE | 2017-12-04 14:36 | Pharmacy Progress Note ---
Glycemic Control Intl Consult Date of Service Dec 04, 2017. Scope Glycemic Pharmacist consulted by Caroline Tomlinson PA-C on 12/04/17 for glycemic control and to write orders per [facility] inpatient glycemic control protocol Objective Weight (Kilograms): 106.300 Accuchecks BSG (last 24hrs): Test 12/04/17 06:13 12/04/17 07:08 12/04/17 07:31 12/04/17 09:56 Bedside Glucose 200 mg/dl (70-99) 225 mg/dl (70-99) 164 mg/dl (70-99) 189 mg/dl (70-99) Test 12/04/17 11:59 Bedside Glucose 272 mg/dl (70-99) HbA1c 7.6% in October 2017 Recent Pertinent Medications Outpatient Anti-diabetic Regimen: * Humalog insulin pump * Basal rate = 1.5 units/hr except 1.7 units/hr from 6627-1139 * SF = 50mg/dl/unit * CR = 1 unit for every 6.3g CHO consumed Risk Factors for Insulin Resistance: * Steroid intra-op (dexamethasone) * Recent Surgery * Diet Assessment & Plan ASSESSMENT: * 62yo T1DM male with excellent outpatient control per recent A1c * Pt is maintained on Humalog insulin pump. Interviewed patient and today along with prosthodontist/educator Maricruz. * Pt follows with [facility] under Dr Elmore. * Pt has an outpatient plan to increase his pump settings by a certain percentage whenever he is on steroids. Will utilize this plan as it has worked well for him in the past. * BGSs may be elevated through tomorrow secondary to dose of dexamethasone. * states she plans to stay for the rest of the day & can assist pt if he needs it. * Site last changed yesterday - pt has all supplies and insulin for pump refill /site change on Monday. * Pt is to manage BSGs with insulin pump per outpatient settings. * RN will have patient read and sign agreement [id number] Insulin Pump Therapy Patient Agreement. * RN will provide and explain form [id number] Flowsheet for Patient * Patient will document their insulin dose given on NS-824 which is kept at the bedside, available to caregivers upon request, and which becomes part of the permanent medical record. If at any time the patients condition evidences that he/she is not able to manage the insulin pump (i.e. frequent hypo/hyperglycemia) Pharmacy will assume glycemic control by discontinuing the pump & managing with SQ basal bolus insulin regimen for the interim. PLAN FOR INPATIENT GLYCEMIC CONTROL: * Continue Humalog pump per stressed outpatient settings x 24 hrs * Will re-check BSG 2 hrs after initial bolus dose given after surgery to ensure BSG trending downwards and not upwards. * Pt to manage own pump and bolus accordingly. * Please note that the plan above was derived based on current level of insulin resistance and hospital stress. These recommendations are appropriate for inpatient admission only. Plan of care upon discharge will need to be reassessed to avoid potential outpatient hypo/hyperglycemia. Thank you.
[2017-12-04] MEDS: ONDANSETRON INJ 2 MG/ML 2 ML VIAL IV PRN (15:55)
[2017-12-04] MEDS: CHECK SCOPOLAMINE PATCH PLACEMENT SCH ×2 (16:00→23:36)
[2017-12-04] MEDS: CLINDAMYCIN IV 600 MG in DEXTROSE 5% 50ML 50 ML IV SCH ×2 (17:57→23:35)
[2017-12-04] MEDS: MoRPHine SULFATE CR 15 MG TAB (MS CONTIN) PO SCH (21:00)
[2017-12-04] MEDS: SODIUM CHLORIDE 0.9% 1000ML 1,000 ML IV SCH (21:09)
[2017-12-04] MEDS: LORAZEPAM INJ 0.5 MG in SYRINGE 0.75 ML IV PRN (21:35)
[2017-12-04] MEDS: DOCUSATE SODIUM 100 MG CAP PO SCH (21:36)
[2017-12-05] VITALS (22 sets, daily range): BP systolic 126–151; BP diastolic 55–75; PULSE 55–80; TEMP 36.5–36.9; O2SAT 93–99
[2017-12-05] MEDS: OXYCODONE HCL IR 5 MG TAB (IMMEDIATE RELEASE) PO PRN (03:20)
[2017-12-05] MEDS: ONDANSETRON INJ 2 MG/ML 2 ML VIAL IV PRN (05:59)
[2017-12-05 07:17] LABS: HEMATOCRIT 39.1 % (42-52); HEMOGLOBIN 13.3 g/dL (14.0-18.0); MEAN CELL VOLUME 90.3 fL (80-100); MEAN CORPUSCULAR HEMOGLOBIN 30.7 pg (25-34); MEAN PLATELET VOLUME 9.8 fL (7.4-10.4); PLATELET COUNT 175 K/uL (130-400); RED CELL DISTRIBUTION WIDTH CV 13.3 % (11.5-14.5); RED CELL DISTRIBUTION WIDTH SD 43.5 fL (36.4-46.3); WHITE BLOOD COUNT 11.09 K/uL (4.8-10.8)
[2017-12-05 07:22] LABS: INR 1.1 (0.9-1.1)
[2017-12-05 07:45] LABS: CALCIUM 8.3 mg/dl (8.5-10.1); CREATININE 0.91 mg/dl (0.60-1.40); POTASSIUM 4.1 mmol/L (3.5-5.1)
--- NOTE | 2017-12-05 08:08 | Anesthesiology Progress Note ---
Anesthesia Post Op Note Date & Time Dec 05, 2017 at 08:08 Vital Signs Pain Intensity: 2.0 Vital Signs Past 12 Hours Date Time Temp Pulse Resp B/P (MAP) Pulse Ox O2 Delivery O2 Flow Rate FiO2 12/05/17 08:07 36.7 60 18 138/70 (92) 95 Room Air 12/05/17 07:30 64 14 96 12/05/17 07:00 Room Air 12/05/17 06:04 93 Room Air 12/05/17 05:15 36.7 16 151/75 (100) 95 Nasal Cannula 2.0 Humidified Oxygen 12/05/17 05:15 36.7 62 16 151/75 95 Nasal Cannula 2.0 Humidified Oxygen 12/05/17 04:16 71 16 96 Nasal Cannula 1.5 12/05/17 03:15 36.5 64 16 134/70 (91) 96 Nasal Cannula 2.0 Humidified Oxygen 12/05/17 03:15 36.7 64 16 134/70 96 Nasal Cannula 2.0 Humidified Oxygen 12/05/17 01:15 36.5 80 16 126/66 99 Nasal Cannula 2.0 Humidified Oxygen 12/05/17 01:15 36.5 80 16 126/66 (86) 99 Nasal Cannula 2.0 Humidified Oxygen 12/05/17 00:35 79 16 96 Nasal Cannula 1.5 12/04/17 23:25 36.6 67 16 121/65 (83) 98 Nasal Cannula 2.0 Humidified Oxygen 12/04/17 23:25 36.6 67 16 121/65 98 Nasal Cannula 2.0 Humidified Oxygen 12/04/17 23:25 Nasal Cannula 2.0 Humidified Oxygen 12/04/17 21:28 36.7 79 16 133/70 96 Room Air 2.0 Humidified Oxygen 12/04/17 20:11 69 14 97 Nasal Cannula 1.5 Notes Mental Status: alert / awake / arousable, participated in evaluation Pt Amnestic to Procedure: Yes Nausea / Vomiting: adequately controlled Pain: adequately controlled Airway Patency, RR, SpO2: stable & adequate BP & HR: stable & adequate Hydration State: stable & adequate Anesthetic Complications: no major complications apparent
[2017-12-05] MEDS: CLINDAMYCIN IV 600 MG in DEXTROSE 5% 50ML 50 ML IV SCH (08:23)
[2017-12-05] MEDS: DOCUSATE SODIUM 100 MG CAP PO SCH ×2 (08:23→21:36)
[2017-12-05] MEDS: CHECK SCOPOLAMINE PATCH PLACEMENT SCH ×3 (08:23→23:34)
[2017-12-05] MEDS: GABAPENTIN 600 MG TAB PO SCH ×3 (08:24→21:36)
[2017-12-05] MEDS: PANTOprazole SOD 40 MG TAB PO SCH (08:24)
[2017-12-05] MEDS: LOSARTAN POTASSIUM 50 MG TAB PO SCH (08:24)
[2017-12-05] MEDS: ALLOPURINOL 300 MG TAB PO SCH (08:24)
[2017-12-05] MEDS: MoRPHine SULFATE CR 15 MG TAB (MS CONTIN) PO SCH ×2 (08:28→21:00)
[2017-12-05] MEDS: SODIUM CHLORIDE 0.9% 1000ML 1,000 ML IV SCH (08:28)
[2017-12-05] MEDS ORDERED: ATORVASTATIN 20 MG TAB PO SCH (09:00)
[2017-12-05] MEDS: HEPARIN SOD 5000 UNIT/0.5 ML CARP SQ SCH ×2 (09:00→21:39)
--- NOTE | 2017-12-05 12:05 | Progress Note ---
Progress Note Date of Service Dec 05, 2017. Progress Note Patient is status post cervical decompression fusion. He swallowing well today. He has no hoarseness. Arm symptoms are improved. On exam is good strength testing is stable bed looks comfortable. Assessment status post cervical decompression fusion. Planned this time we'll initiate subcutaneous heparin today. Anticipate possibly beginning subcutaneous Lovenox and Coumadin tomorrow.
[2017-12-05] MEDS ORDERED: ALUMINUM/MAGNESIUM SUSP 30 ML UDC PO ONE (14:16)
--- NOTE | 2017-12-05 14:27 | Progress Note ---
Medicine Progress Note Date & Time of Visit: Dec 05, 2017 at 14:18. Subjective patient seen sitting up in bed, appears comfortable denies chest pain, dyspnea, palpitations, dizziness reports some mild heartburn, no nausea (+) flatus, no BMs yet denies other symptoms Objective Last 8 Hrs Date Time Temp Pulse Resp B/P (MAP) Pulse Ox O2 Delivery O2 Flow Rate FiO2 12/05/17 14:03 36.5 58 16 133/70 97 Room Air 2.0 Humidified Oxygen 12/05/17 14:01 36.5 58 16 133/70 (91) 97 Room Air 12/05/17 11:26 68 14 96 12/05/17 10:42 36.8 62 16 126/63 (84) 98 Room Air 12/05/17 09:48 36.6 66 16 139/72 96 Room Air 2.0 Humidified Oxygen 12/05/17 09:47 36.6 66 16 139/72 (94) 96 Room Air 12/05/17 08:09 36.7 18 138/70 95 Room Air 2.0 Humidified Oxygen 12/05/17 08:07 36.7 60 18 138/70 (92) 95 Room Air 12/05/17 07:30 64 14 96 12/05/17 07:00 Room Air Physical Exam: General- oriented x 3, not in distress, speaks in sentences with no effort Head- atraumatic Eyes- EOMI, anicteric ENT- oropharynx clear Neck- (+) cervical collar in place, with drain- bloody output no adenopathy, no thyromegaly Lungs- clear breath sounds, no rales/wheezes Heart- regular rhythm; no murmur, normal rate Abdomen- normal bowel sounds, soft, nontender, non distended Extremities- no pretibial edema, no calf tenderness; peripheral pulses intact Neuro- alert, oriented x 3; no gross focal deficits Skin- warm & dry Laboratory Results: Last 24 Hours Test 12/04/17 15:35 12/04/17 16:54 12/04/17 20:35 12/05/17 06:31 Bedside Glucose 297 mg/dl 270 mg/dl 292 mg/dl White Blood Count 11.09 K/uL Red Blood Count 4.33 M/uL Hemoglobin 13.3 g/dL Hematocrit 39.1 % Mean Corpuscular Volume 90.3 fL Mean Corpuscular Hemoglobin 30.7 pg Mean Corpuscular Hemoglobin Concent 34.0 g/dl RDW Standard Deviation 43.5 fL RDW Coefficient of Variation 13.3 % Platelet Count 175 K/uL Mean Platelet Volume 9.8 fL Prothrombin Time 11.1 SECONDS Prothromb Time International Ratio 1.1 Sodium Level 132 mmol/L Potassium Level 4.1 mmol/L Chloride Level 100 mmol/L Carbon Dioxide Level 25 mmol/L Anion Gap 7.0 mmol/L Blood Urea Nitrogen 17 mg/dl Creatinine 0.91 mg/dl Est Creatinine Clear Calc Drug Dose 95.3 ml/min Estimated GFR () 102.9 Estimated GFR (Non- 88.8 BUN/Creatinine Ratio 19.3 Random Glucose 256 mg/dl Calcium Level 8.3 mg/dl Magnesium Level 1.8 mg/dl Test 12/05/17 08:21 12/05/17 11:48 Bedside Glucose 224 mg/dl 310 mg/dl Assessment & Plan This is a 62yo M with a PMH of DM I, Factor V Leiden mutation (on coumadin, s/p IVF filter placement in 2014), DAHIANA, HTN, HLD, OA and cervical and thoracic spinal stenosis who is POD#0 s/p anterior cervical discectomy and fusion. Cervical/thoracic spinal stenosis s/p C3-C4 discectomy and fusion: - post op day 1 - pain under control (+) hyperglycemia- management as noted below - may need Lovenox bridge with coumadin will discuss with Dr. Zamudio DM I: - (+) hyperglycemia likely from Dexamethasone, stress - Pharmacy Glycemic control service consulted patient comfortable with managing his Insulin Pump while admitted Factor V Leiden Mutation History of Pulmonary Embolism -S/p IVC filter placement in 2014 -Dr Estrada discussed plans to resume coumadin, per patient - on Heparin SC q12h may need Lovenox bridge with coumadin when hemostasis stable per Dr. Zamudio will discuss with Dr. Zamudio Dyspepsia - change Protonix to Omeprazole per patient's request PRN Maalox DAHIANA: -Brought CPAP from home -Will hold for now s/p cervical spine surgery HTN: - BP stable - continue Losartan HLD: - (+) heartburn hold Statin for now OA, chronic back pain: -Cont home pain regimen Thank you for this consultation. We will follow the patient with you during their hospital stay. You can reach a member of the [facility] Hospitalist Team 19/06 via pager @ . Current Inpatient Medications: Current Inpatient Medications Medications (Trade) Dose Ordered Sig/Bud Route Start Time Stop Time Status Last Admin Dose Admin Acetaminophen 100 ml @ 400 mls/hr Q8H PRN IV 12/04/17 09:45 01/03/18 09:44 Hydromorphone HCl (Dilaudid Inj) 0.5mg IV for moder... Q3H PRN IV 12/04/17 09:45 12/18/17 09:44 12/04/17 18:26 1 MG Magnesium Hydroxide (Milk Of Magnesia Susp) 30 ml DAILY PRN PO 12/04/17 09:45 01/03/18 09:44 Docusate Sodium (coLACE CAP) 100 mg BID PO 12/04/17 21:00 01/03/18 20:59 12/05/17 08:23 100 MG Ondansetron HCl (Zofran Inj) 4 mg Q6 PRN IV 12/04/17 09:45 01/03/18 09:44 12/05/17 05:59 4 MG Scopolamine (Transderm-Scop Patch) 1.5 mg Q3D@0900 TD 12/04/17 12:30 01/03/18 12:29 12/04/17 13:51 1.5 MG Lorazepam (Ativan Tab) 0.5 mg Q8H PRN PO 12/04/17 09:45 01/03/18 09:44 Lorazepam 0.5 mg/ Syringe 1 ml @ 1 mls/min Q8H PRN IV 12/04/17 09:45 01/03/18 09:44 12/04/17 21:35 1 MLS/MIN Diphenhydramine HCl (Benadryl Inj) 25 mg Q6H PRN IV 12/04/17 09:45 01/03/18 09:44 Pneumococcal Polysaccharide Vaccine 1 ea PRN PRN N/A 12/04/17 09:45 01/03/18 09:44 Influenza Virus Vacc Triv Types A&B 1 ea PRN PRN N/A 12/04/17 09:45 01/03/18 09:44 Oxycodone HCl (Roxicodone Immediate Rel Tab) 5mg for pain scale 4-6 1... Q4H PRN PO 12/04/17 09:45 12/18/17 09:44 12/05/17 03:20 10 MG Polyethylene (Miralax Powder Packet) 17 gm DAILY PO 12/06/17 09:00 01/05/18 08:59 Bisacodyl (Dulcolax Tab) 5 mg DAILY PRN PO 12/06/17 06:00 01/05/18 05:59 Bisacodyl (Dulcolax Supp) 10 mg DAILY PRN NV 12/06/17 06:00 01/05/18 05:59 Naloxone HCl (Narcan Inj) 0.1 mg Q5M PRN IV 12/04/17 09:45 01/03/18 09:44 Miscellaneous (Remove Transderm-Scop Patch) 1 ea Q3D@0859 N/A 12/04/17 12:29 01/03/18 12:28 Miscellaneous Information (Check Scopolamine Patch Placement) 1 ea QS N/A 12/04/17 16:00 01/03/18 15:59 12/05/17 08:23 1 EA Allopurinol (Zyloprim Tab) 300 mg QAM PO 12/05/17 09:00 01/04/18 08:59 12/05/17 08:24 300 MG Atorvastatin Calcium (Lipitor Tab) 20 mg QAM PO 12/05/17 09:00 01/04/18 08:59 12/05/17 08:24 20 MG Gabapentin (Neurontin Tab) 600 mg TID PO 12/04/17 14:00 01/03/18 13:59 12/05/17 13:37 600 MG Losartan Potassium (coZAAR TAB) 100 mg QAM PO 12/05/17 09:00 01/04/18 08:59 12/05/17 08:24 100 MG Morphine Sulfate (Oramorph Sr Tab) 15 mg BID PO 12/04/17 21:00 12/18/17 20:59 Albuterol (Ventolin Hfa Inhaler) 2 puffs Q4H PRN INH 12/04/17 12:00 01/03/18 11:59 Pantoprazole Sodium (Protonix Tab) 40 mg QAM PO 12/05/17 09:00 01/04/18 08:59 12/05/17 08:24 40 MG Insulin Human Lispro (HumaLOG INSULIN PUMP) 1 ea ACHS N/A 12/04/17 12:00 01/03/18 11:59 12/05/17 12:25 1 EA Insulin Human Lispro (humaLOG) SLIDING SCALE PRN PRN SC 12/04/17 12:00 01/03/18 11:59 Glucose (Glucose 40% Gel) UD PRN PO 12/04/17 12:00 01/03/18 11:59 Glucose (Glucose Chew Tab) 1 tabs UD PRN PO 12/04/17 12:00 01/03/18 11:59 Glucagon (Glucagon Inj) 1 mg UD PRN SQ 12/04/17 12:00 01/03/18 11:59 Dextrose (Dextrose 50% 50ML Syringe) 50 ml UD PRN IV 12/04/17 12:00 01/03/18 11:59 Miscellaneous Information (Consult Glycemic Management Pharmacy) 1 ea UD PRN N/A 12/04/17 12:10 01/03/18 12:09 Heparin Sodium (Porcine) (Heparin Sq 5000 Unit/0.5ml) 5,000 unit Q12 SQ 12/05/17 09:00 01/04/18 08:59 12/05/17 09:00 5,000 UNIT
[2017-12-05] MEDS ORDERED: ALUMINUM/MAGNESIUM SUSP 30 ML UDC PO PRN (14:30)
[2017-12-05] MEDS ORDERED: NURSING VERBAL MED ORDER ONE ×2 (17:30→17:45)
[2017-12-05] MEDS ORDERED: ACETAMINOPHEN 500 MG TAB PO PRN (17:45)
[2017-12-05] MEDS ORDERED: ACETAMINOPHEN 500 MG TAB PO SCH (22:00)
[2017-12-06] VITALS (16 sets, daily range): BP systolic 122–151; BP diastolic 66–79; PULSE 51–84; TEMP 36.6–37.3; O2SAT 92–98; Ht 170.2 cm; Wt 106.3 kg
[2017-12-06] MEDS ORDERED: BISACODYL 5 MG TABEC PO PRN (06:00)
[2017-12-06] MEDS ORDERED: BISACODYL 10 MG SUPP PR PRN (06:00)
[2017-12-06] MEDS ORDERED: WARFARIN SOD 10 MG TAB PO ONE (08:00)
[2017-12-06] MEDS: CHECK SCOPOLAMINE PATCH PLACEMENT SCH ×3 (08:05→23:04)
[2017-12-06] MEDS: GABAPENTIN 600 MG TAB PO SCH ×3 (08:19→21:29)
[2017-12-06] MEDS: DOCUSATE SODIUM 100 MG CAP PO SCH ×2 (08:19→21:29)
[2017-12-06] MEDS: MoRPHine SULFATE CR 15 MG TAB (MS CONTIN) PO SCH ×2 (08:19→21:29)
[2017-12-06] MEDS: LOSARTAN POTASSIUM 50 MG TAB PO SCH (08:19)
[2017-12-06] MEDS: ALLOPURINOL 300 MG TAB PO SCH (08:20)
[2017-12-06] MEDS: PANTOprazole SOD 40 MG TAB PO SCH (08:20)
[2017-12-06] MEDS: POLYETHYLENE (MIRALAX) 17 GM PACK PO SCH (08:20)
[2017-12-06] MEDS: ENOXAPARIN 30 MG/0.3 ML SYR SQ SCH ×3 (08:22→19:42)
[2017-12-06] MEDS ORDERED: lovenox SQ (09:36)
--- NOTE | 2017-12-06 10:52 | Progress Note ---
Progress Note Date of Service Dec 06, 2017. Progress Note Neck pain is controlled. Arm symptoms markedly improved. He swallowing without difficulty. On exam is good strength testing ambulating without difficulty. Assessment status post anterior cervical corpectomy and fusion replant this time we'll initiate Lovenox and Coumadin today assess his progress tomorrow possibly discharge home tomorrow.
[2017-12-06] MEDS: OXYCODONE HCL IR 5 MG TAB (IMMEDIATE RELEASE) PO PRN (14:44)
--- NOTE | 2017-12-06 17:36 | Progress Note ---
Medicine Progress Note Date & Time of Visit: Dec 06, 2017 at 17:31. Subjective patient seen resting in bed, comfortable states he feels better today, pain under good control denies chest pain, dyspnea, dizziness, nausea had low blood glucose reading this AM, states this happens to him occasionally at home denies other symptoms Objective Last 8 Hrs Date Time Temp Pulse Resp B/P (MAP) Pulse Ox O2 Delivery O2 Flow Rate FiO2 12/06/17 15:20 66 14 97 Room Air 12/06/17 15:18 37.0 64 16 147/78 (101) 96 Room Air 12/06/17 14:00 37.0 58 16 131/71 97 Room Air 12/06/17 11:41 72 14 98 Room Air 12/06/17 10:00 36.6 62 16 122/68 97 Room Air Physical Exam: General- oriented x 3, not in distress, speaks in sentences with no effort Eyes- anicteric Neck- (+) cervical collar in place, with drain- bloody output- scant no adenopathy, no thyromegaly Lungs- clear breath sounds, no rales/wheezes Heart- regular rhythm; no murmur, normal rate Abdomen- normal bowel sounds, soft, nontender, non distended Extremities- no pretibial edema, no calf tenderness; peripheral pulses intact Neuro- alert, oriented x 3; no gross focal deficits Skin- warm & dry Laboratory Results: Last 24 Hours Test 12/05/17 17:39 12/05/17 20:45 12/06/17 07:47 12/06/17 08:07 Bedside Glucose 122 mg/dl 113 mg/dl 66 mg/dl 72 mg/dl Test 12/06/17 11:53 12/06/17 17:01 Bedside Glucose 113 mg/dl 97 mg/dl Assessment & Plan This is a 62yo M with a PMH of DM I, Factor V Leiden mutation (on coumadin, s/p IVF filter placement in 2014), DAHIANA, HTN, HLD, OA and cervical and thoracic spinal stenosis who is POD#0 s/p anterior cervical discectomy and fusion. Cervical/thoracic spinal stenosis s/p C3-C4 discectomy and fusion: - post op day 2 - stable overall - coumadin with Lovenox bridge started will discuss with Dr. Zamudio re: dosing for Lovenox bridge (needs Lovenox 1mg/ kg BID) DM I: - hypoglycemic this AM advised to have snack at bedtime to prevent AM hypoglycemia - Pharmacy Glycemic control service consulted patient comfortable with managing his Insulin Pump while admitted Factor V Leiden Mutation History of Pulmonary Embolism -S/p IVC filter placement in 2014 -Dr Elmore and Devin discussed plans to resume coumadin, per patient - coumadin with Lovenox bridge started will discuss with Dr. Zamudio re: dosing for Lovenox bridge (needs Lovenox 1mg/ kg BID) Dyspepsia - on Protonix PRN Maalox DAHIANA: -Brought CPAP from home -Will hold for now s/p cervical spine surgery HTN: - BP stable - continue Losartan HLD: - (+) heartburn hold Statin for now OA, chronic back pain: -Cont home pain regimen Thank you for this consultation. We will follow the patient with you during their hospital stay. You can reach a member of the [facility] Hospitalist Team 19/06 via pager @ . Current Inpatient Medications: Current Inpatient Medications Medications (Trade) Dose Ordered Sig/Bud Route Start Time Stop Time Status Last Admin Dose Admin Acetaminophen 100 ml @ 400 mls/hr Q8H PRN IV 12/04/17 09:45 01/03/18 09:44 Hydromorphone HCl (Dilaudid Inj) 0.5mg IV for moder... Q3H PRN IV 12/04/17 09:45 12/18/17 09:44 12/04/17 18:26 1 MG Magnesium Hydroxide (Milk Of Magnesia Susp) 30 ml DAILY PRN PO 12/04/17 09:45 01/03/18 09:44 Docusate Sodium (coLACE CAP) 100 mg BID PO 12/04/17 21:00 01/03/18 20:59 12/06/17 08:19 100 MG Ondansetron HCl (Zofran Inj) 4 mg Q6 PRN IV 12/04/17 09:45 01/03/18 09:44 12/05/17 05:59 4 MG Scopolamine (Transderm-Scop Patch) 1.5 mg Q3D@0900 TD 12/04/17 12:30 01/03/18 12:29 12/04/17 13:51 1.5 MG Lorazepam (Ativan Tab) 0.5 mg Q8H PRN PO 12/04/17 09:45 01/03/18 09:44 12/05/17 21:36 0.5 MG Lorazepam 0.5 mg/ Syringe 1 ml @ 1 mls/min Q8H PRN IV 12/04/17 09:45 01/03/18 09:44 12/04/17 21:35 1 MLS/MIN Diphenhydramine HCl (Benadryl Inj) 25 mg Q6H PRN IV 12/04/17 09:45 01/03/18 09:44 Pneumococcal Polysaccharide Vaccine 1 ea PRN PRN N/A 12/04/17 09:45 01/03/18 09:44 Influenza Virus Vacc Triv Types A&B 1 ea PRN PRN N/A 12/04/17 09:45 01/03/18 09:44 Oxycodone HCl (Roxicodone Immediate Rel Tab) 5mg for pain scale 4-6 1... Q4H PRN PO 12/04/17 09:45 12/18/17 09:44 12/06/17 14:44 10 MG Polyethylene (Miralax Powder Packet) 17 gm DAILY PO 12/06/17 09:00 01/05/18 08:59 12/06/17 08:20 17 GM Bisacodyl (Dulcolax Tab) 5 mg DAILY PRN PO 12/06/17 06:00 01/05/18 05:59 Bisacodyl (Dulcolax Supp) 10 mg DAILY PRN DC 12/06/17 06:00 01/05/18 05:59 Naloxone HCl (Narcan Inj) 0.1 mg Q5M PRN IV 12/04/17 09:45 01/03/18 09:44 Miscellaneous (Remove Transderm-Scop Patch) 1 ea Q3D@0859 N/A 12/04/17 12:29 01/03/18 12:28 Miscellaneous Information (Check Scopolamine Patch Placement) 1 ea QS N/A 12/04/17 16:00 01/03/18 15:59 12/06/17 16:05 1 EA Allopurinol (Zyloprim Tab) 300 mg QAM PO 12/05/17 09:00 01/04/18 08:59 12/06/17 08:20 300 MG Gabapentin (Neurontin Tab) 600 mg TID PO 12/04/17 14:00 01/03/18 13:59 12/06/17 13:48 600 MG Losartan Potassium (coZAAR TAB) 100 mg QAM PO 12/05/17 09:00 01/04/18 08:59 12/06/17 08:19 100 MG Morphine Sulfate (Oramorph Sr Tab) 15 mg BID PO 12/04/17 21:00 12/18/17 20:59 12/06/17 08:19 15 MG Albuterol (Ventolin Hfa Inhaler) 2 puffs Q4H PRN INH 12/04/17 12:00 01/03/18 11:59 Pantoprazole Sodium (Protonix Tab) 40 mg QAM PO 12/05/17 09:00 01/04/18 08:59 12/06/17 08:20 40 MG Insulin Human Lispro (HumaLOG INSULIN PUMP) 1 ea ACHS N/A 12/04/17 12:00 01/03/18 11:59 12/06/17 12:30 1 EA Insulin Human Lispro (humaLOG) SLIDING SCALE PRN PRN SC 12/04/17 12:00 01/03/18 11:59 Glucose (Glucose 40% Gel) UD PRN PO 12/04/17 12:00 01/03/18 11:59 Glucose (Glucose Chew Tab) 1 tabs UD PRN PO 12/04/17 12:00 01/03/18 11:59 Glucagon (Glucagon Inj) 1 mg UD PRN SQ 12/04/17 12:00 01/03/18 11:59 Dextrose (Dextrose 50% 50ML Syringe) 50 ml UD PRN IV 12/04/17 12:00 01/03/18 11:59 Miscellaneous Information (Consult Glycemic Management Pharmacy) 1 ea UD PRN N/A 12/04/17 12:10 01/03/18 12:09 Al Hydroxide/Mg Hydroxide (Maalox Susp) 30 ml Q6H PRN PO 12/05/17 14:30 01/04/18 14:29 Acetaminophen (Tylenol Tab) 1,000 mg Q8 PRN PO 12/05/17 17:45 01/04/18 17:44 12/06/17 02:12 1,000 MG Enoxaparin Sodium (Lovenox Inj) 30 mg Q12H SQ 12/06/17 08:00 01/05/18 07:59 12/06/17 08:27 30 MG
[2017-12-06] MEDS: LORAZEPAM INJ 0.5 MG in SYRINGE 0.75 ML IV PRN (21:30)
[2017-12-07] VITALS (7 sets, daily range): BP systolic 138–161; BP diastolic 77–81; PULSE 66–80; TEMP 36.7–37.6; O2SAT 94–98
--- NOTE | 2017-12-07 08:43 | Discharge Summary ---
Orthopedic Discharge Summary Admission Date/Reason Dec 04, 2017 at 09:38 Spinal Stenosis. Discharge Date/Disposition Dec 07, 2017 Home Diagnosis Principal Diagnosis: Cervical spinal stenosis Admission Physical Exam As per Admitting History & Physical. Hospital Course Patient underwent anterior cervical decompression fusion tolerated as well as taken to the orthopedic floor. We did have to initiate aggressive postoperative anticoagulation so he remain in the hospital for a few days to assess his tolerance and monitor his neurologic status. He progressed properly. BRAIN drain decreasing appropriate. Subsequently discharged home. Discharge orders and instructions found the chart for further review. Discharge Instructions Please refer to the electronic Patient Visit Report (Discharge Instructions) for additional information.
[2017-12-07] MEDS: DOCUSATE SODIUM 100 MG CAP PO SCH (08:52)
[2017-12-07] MEDS: LOSARTAN POTASSIUM 50 MG TAB PO SCH (08:52)
[2017-12-07] MEDS: GABAPENTIN 600 MG TAB PO SCH (08:52)
[2017-12-07] MEDS: ALLOPURINOL 300 MG TAB PO SCH (08:52)
[2017-12-07] MEDS: PANTOprazole SOD 40 MG TAB PO SCH (08:53)
[2017-12-07] MEDS: ENOXAPARIN 30 MG/0.3 ML SYR SQ SCH (08:54)
[2017-12-07] MEDS: CHECK SCOPOLAMINE PATCH PLACEMENT SCH (08:54)
[2017-12-07] MEDS: SCOPOLAMINE 1.5 MG TDSY TD SCH (08:55)
[2017-12-07] MEDS: POLYETHYLENE (MIRALAX) 17 GM PACK PO SCH (08:55)
[2017-12-07] MEDS: MoRPHine SULFATE CR 15 MG TAB (MS CONTIN) PO SCH (08:59)
== END 2017-12-07 11:05 | disposition other institution (70) | DRG 472 ==
LOC: C.ACU 05:53 → C.3E 09:38 → ENRESERV 10:44 → UNDODISIN 12-05 15:56
PROVIDERS: ADMIT Orthopaedic Surgery Orthopaedic Surgery of the Spine; ATTEND Orthopaedic Surgery Orthopaedic Surgery of the Spine
PROC: 0RG20A0 Fusion of 2 or more Cervical Vertebral Joints with Interbody Fusion Device, Anterior Approach, Anterior Column, Open Approach (ICD-10-PCS; principal; 2017-12-04 07:45)
PROC: 0RT30ZZ Resection of Cervical Vertebral Disc, Open Approach (ICD-10-PCS; principal; 2017-12-04 07:45)
DX: M48.02 Spinal stenosis, cervical region (principal); D68.51 Activated protein C resistance; R10.13 Epigastric pain; I10 Essential (primary) hypertension; E10.65 Type 1 diabetes mellitus with hyperglycemia; T38.0X5A Adverse effect of glucocorticoids and synthetic analogues, initial encounter; E10.42 Type 1 diabetes mellitus with diabetic polyneuropathy; E10.51 Type 1 diabetes mellitus with diabetic peripheral angiopathy without gangrene; E78.5 Hyperlipidemia, unspecified; K21.9 Gastro-esophageal reflux disease without esophagitis; M19.90 Unspecified osteoarthritis, unspecified site; G89.29 Other chronic pain; M54.9 Dorsalgia, unspecified; M06.9 Rheumatoid arthritis, unspecified; M10.9 Gout, unspecified; G47.33 Obstructive sleep apnea (adult) (pediatric); E66.9 Obesity, unspecified; Z68.36 Body mass index [BMI] 36.0-36.9, adult; Z98.1 Arthrodesis status; Z99.89 Dependence on other enabling machines and devices; Z95.828 Presence of other vascular implants and grafts; Z86.711 Personal history of pulmonary embolism; Z86.718 Personal history of other venous thrombosis and embolism; Z79.01 Long term (current) use of anticoagulants; Z79.891 Long term (current) use of opiate analgesic; Z79.899 Other long term (current) drug therapy

== ENCOUNTER 2020-11-09 07:52 | Inpatient (IN) ==
--- NOTE | 2020-10-19 12:53 | PAT Medication Instructions ---
Medication Instructions Date of Service October 19, 2020 Home Medications allopurinol 300 mg PO QAM atorvastatin 40 mg PO QAM ferrous sulfate [iron] 325 mg PO HS gabapentin 2 tab PO TID insulin aspart U-100 [Novolog U-100 Insulin aspart] 1 dose UD losartan 100 mg PO QAM magnesium 250 mg PO QPM morphine 15 mg PO Q12H omega 2-lqs-sta-fish oil [Fish Oil] 1 cap PO BID omeprazole 40 mg PO QAM warfarin 1 tab PO UD celecoxib [Celebrex] 200 mg PO QAM cholecalciferol (vitamin D3) [Vitamin D3] 25 mcg PO QAM ASK your surgeon for instructions celecoxib [Celebrex] 200 mg PO QAM ASK your prescriber and surgeon warfarin 1 tab PO UD STOP taking 2 weeks before surgery (or as soon as possible if surgery is within 2 weeks) omega 9-zln-czo-fish oil [Fish Oil] 1 cap PO BID DO NOT take the morning of surgery losartan 100 mg PO QAM cholecalciferol (vitamin D3) [Vitamin D3] 25 mcg PO QAM Take morning of surgery With a small sip of water, OTHERWISE NOTHING TO EAT OR DRINK AFTER MIDNIGHT: allopurinol 300 mg PO QAM atorvastatin 40 mg PO QAM gabapentin 2 tab PO TID morphine 15 mg PO Q12H (okay to take up to 4 hours prior to surgery if needed) omeprazole 40 mg PO QAM Take evening before surgery ferrous sulfate [iron] 325 mg PO HS gabapentin 2 tab PO TID magnesium 250 mg PO QPM morphine 15 mg PO Q12H Insulin Dependent Diabetic Patients Test your blood sugar the morning of surgery. For insulin pump, set to basal rate for day of surgery (no bolus) Other Notes If you have any questions please call us at [phone] or [phone] or [phone] or [phone]
--- NOTE | 2020-10-20 11:19 | Anesthesiology Consultation ---
Date of Service October 20, 2020 Assessment & Plan (1) Encounter for pre-operative examination: - Patient scheduled to see cardiology and PCP prior to surgery. Awaiting office visit notes. - Per assessment on 10/20: Travel screen negative. No known COVID-19 positive contacts or current COVID-19 related symptoms. Surgeon arranging preop COVID testing. Awaiting results. - Check BSG, coags AM DOS (warfarin instructions per surgeon/prescriber) Chart Review Chart Review: Patient seen in Pre Admission Testing Teaching & Discussion Pre-Anesthesia Teaching/Discussion Notes: Instructed NPO after midnight before surgery,except medications with 15 cc of water. Medication instructions provided according to the PAT guidelines. History Surgery Operation Date: 11/09/20 07:45 Proposed Procedures p Left Sacroiliac Joint Fusion - David Zamudio DO Height/Weight Height: 5 ft 6 in Weight: 111 kg Allergies Allergy/AdvReac Type Severity Reaction Status Date / Time Penicillins Allergy Mild Rash Verified 10/20/20 11:40 Diclopak Allergy Unknown AFFECTED Verified 04/13/18 07:02 LIVER FUNCTION azithromycin AdvReac Intermediate Chemical Verified 10/20/20 11:40 hepatitis (when combined with voltaren) capsaicin AdvReac Intermediate Elevated Verified 10/20/20 11:40 LFTs diclofenac AdvReac Intermediate Elevated Verified 10/20/20 11:40 LFTs meperidine AdvReac Intermediate severe N/V Verified 10/20/20 11:40 Medications Home Medications Medication Instructions Recorded Confirmed Last Taken allopurinol 300 mg PO QAM 12/05/18 10/13/20 01/15/19 04:00 atorvastatin 40 mg PO QAM 12/05/18 10/13/20 01/21/19 08:00 ferrous sulfate [iron] 325 mg PO HS 12/05/18 10/13/20 01/21/19 18:00 gabapentin 2 tab PO TID 12/05/18 10/13/20 01/21/19 18:00 insulin aspart U-100 [Novolog 1 dose UD 12/05/18 10/13/20 01/22/19 U-100 Insulin aspart] losartan 100 mg PO QAM 12/05/18 10/13/20 01/15/19 04:00 magnesium 250 mg PO QPM 12/05/18 10/13/20 01/07/19 18:00 morphine 15 mg PO Q12H 12/05/18 10/13/20 01/15/19 04:00 omega 9-hee-npg-fish oil [Fish Oil] 1 cap PO BID 12/05/18 10/13/20 01/21/19 18:00 omeprazole 40 mg PO QAM 12/05/18 10/13/20 01/15/19 04:00 warfarin 1 tab PO UD 12/05/18 10/13/20 01/21/19 18:00 celecoxib [Celebrex] 200 mg PO QAM 10/13/20 10/13/20 Unknown cholecalciferol (vitamin D3) 25 mcg PO QAM 10/13/20 10/13/20 Unknown [Vitamin D3] Past Medical History Medical History Aortic stenosis Moderate aortic stenosis (VIANNEY 1.2-1.3cm2, MG 15.7-17.6mmhg) per 04/2020 echo Carotid artery stenosis B/L ICA stenosis <50% Degenerative disc disease Diabetes mellitus type 1 + pump Factor 5 Leiden mutation, heterozygous GERD (gastroesophageal reflux disease) Gout [place] filter in place Hyperlipidemia Hypertension Kidney stones hx Osteoarthritis Peripheral neuropathy feet Pulmonary embolism multiple (2013)/dx factor 5 leiden mutation- on warfarin Rheumatic fever at age 7 Sleep apnea CPAP Spinal stenosis Exercise / Class Metabolic Activity III < 4 Walking/Shop/Light housework Past Family History Family History Mother Family history of diabetes mellitus Family/Other Family history of diabetes mellitus NIECE Grandmother (Maternal) No problems noted. Brother Family history of diabetes mellitus Grandmother (Paternal) Family history of diabetes mellitus Past Surgical History Surgical History Fusion of spine lumbar, cervical History of ankle fusion 05/2020 ([facility]) History of cataract surgery R/L History of colonoscopy History of nasal septoplasty History of tooth extraction History of total knee replacement Right TKA: 04/13/18: SAB x 2 attempts (patient with multiple back surgeries, unable to pass needle through) > LMA#5 + PNB at [facility] Hx of toe surgery Left great toe fusion Past Anesthesia History No Hx of Anesthesia Complications Father: allergic to novocaine, no similar issues for patient with novocaine/dental procedures History of PONV No Hx of PONV and Hx of Motion Sickness (occasional) Social History Smoking Status: Never smoker Do You Dip or Chew Tobacco: No Hx Alcohol Use: Yes Alcohol type: beer and hard liquor alcohol intake frequency: a few times a month Hx Substance Use: No substance use type: does not use Review of Systems Patient denies chest pain, shortness of breath, fever, chills, cough, wheezing, palpitations. Physical Exam Vital Signs VITALS BP 158/72 P 66 TEMP 98.1 SP02 98%RA RESP 16 PHYSICAL Full neck and c-spine range of motion. Full TMJ range of motion. TMD 3 finger breaths Mallampati Score 2 Dentition: intact, + crowns on molars Lungs: clear throughout to auscultation Cardiac: regular rate and rhythm, III/ systolic murmur Spine: normal Carotid arteries: + bruit vs. murmur radiation Extremities: no edema Testing Laboratory Results PT 38.0 Seconds (9.0-12.0) H 10/20/20 11:32 INR 3.9 (0.9-1.1) H 10/20/20 11:32 APTT 51.3 Seconds (21.0-31.0) H* 10/20/20 11:32 Urine Color Yellow 10/20/20 11:32 Urine Appearance Clear (Clear) 10/20/20 11:32 Urine pH 8.5 (4.5-7.5) H 10/20/20 11:32 Ur Specific [place] 1.014 (1.000-1.030) 10/20/20 11:32 Urine Protein Negative (Negative) 10/20/20 11:32 Urine Glucose (UA) Negative (Negative) 10/20/20 11:32 Urine Ketones Negative (Negative) 10/20/20 11:32 Urine Nitrite Negative (Negative) 10/20/20 11:32 Ur Leukocyte Esterase Negative (Negative) 10/20/20 11:32 Urine WBC (Auto) 0 /hpf (0-5) 10/20/20 11:32 Urine RBC (Auto) 5-10 /hpf (0-4) H 10/20/20 11:32 U Hyaline Cast (Auto) 0 /lpf (0-5) 10/20/20 11:32 U Epithel Cells (Auto) 0-5 /lpf (0-5) 10/20/20 11:32 Urine Bacteria (Auto) Negative (Negative) 10/20/20 11:32 Blood Type O Positive 10/20/20 11:32 Antibody Screen NEGATIVE 10/20/20 11:32 Krysten at surgeon's office aware of elevated coags- forwarding results to PCP for further monitoring/adjusting preoperatively 09/22/20 WBC 5.13 H/H 15.0/45.4 PLATELETS 240 SODIUM 139 POTASSIUM 4.5 CHLORIDE 104 CO2 30 BUN 16 CREATININE 1.1 GLUCOSE 148 HGBA1C 7.2% Electrocardiogram Date: 05/08/20 NSR at 64bpm. LAFB. PRWP. Baseline artifact. No significant change compared to 08/14/19 per digital strategy director review. Chest X-Ray Date: 10/20/20 FINDINGS: The cardiac and mediastinal contours remain stable. There are calcified hilar lymph nodes. There is interval resolution of the previously identified right midlung zone opacity with minimal residual scarring. Postsurgical changes are present within the lumbar spine thoracic spine and cervical spine. There is no failure. There is no focal pulmonary consolidation. There are no pleural effusions. A rounded opacity at the left lung base is felt to represent a nipple shadow. IMPRESSION: No active disease in the chest. Echocardiogram Date: 05/19/20 LVEF 55 to 59%. No regional wall motion abnormality. Mildly increased concentric LV wall thickness. Moderately calcified aortic valve. Mild aortic regurgitation. Mildly enlarged aortic root and proximal ascending aorta. Moderate aortic stenosis (VIANNEY 1.2-1.3cm2, MG 15.7-17.6mmhg). Stress Test Date: 01/02/19 Type: nuclear Lexiscan nuclear stress test negative for ischemia. Small size fixed perfusion defect of mild intensity encompassing the basal and mid levels of the inferior wall. In light of the appearance of the raw data and the normal gated wall motion, this is felt to be attenuation artifact. Gated SPECT imaging reveals normal myocardial thickening and wall motion. LVEF 64%. 64% max predicted heart rate. Other Testing Carotid artery duplex: 10/01/20: Bilateral vertebral artery antegrade flow. Bilateral ICA stenosis less than 50%.
[2020-10-20 11:59] LABS: Appearance Urine Clear (Clear); Bacteria Urine Automated Negative (Negative); Bilirubin Urine Negative (Negative); Blood Urine 1+ (Negative); Cast Urine Automated 0 /lpf (0-5); Color Urine Yellow; Epithelial Cell Urine Auto 0-5 /lpf (0-5); Glucose Urine UA Negative (Negative); Ketones Urine Negative (Negative); Leukocyte Esterase Urine Negative (Negative); Nitrite Urine Negative (Negative); Protein Urine Negative (Negative); Specific Gravity Urine 1.014 (1.000-1.030); Urobilinogen Urine Negative (Negative); WBC Urine Automated 0 /hpf (0-5); pH Urine 8.5 (4.5-7.5)
[2020-10-20 12:12] LABS: INR 3.9 (0.9-1.1); Partial Thromboplastin Ratio 1.8
--- NOTE | 2020-10-20 12:12 | XRay Report ---
XR chest Pre-admission PA/Lat CLINICAL HISTORY: Preoperative chest COMPARISON STUDY: February 2018 FINDINGS: The cardiac and mediastinal contours remain stable. There are calcified hilar lymph nodes. There is interval resolution of the previously identified right midlung zone opacity with minimal res idual scarring. Postsurgical changes are present within the lumbar spine thoracic spine and cervical spine. There is no failure. There is no focal pulmonary consolidation. There are no pleural effusions . A rounded opacity at the left lung base is felt to represent a nipple shadow.[ IMPRESSION: No active disease in the chest. ACT 112: Negative or not required by law. Electronically signed by: Kalpesh Dale M.D. 10/20/2020 12:11 PM
[2020-10-20 12:39] LABS: Partial Thromboplastin Time 51.3 Seconds (21.0-31.0)
[~2020-11-09 07:52] MED LIST changes: -ALBU18002 INH; -ALLO300T2 PO; -ATOR-22 PO; +CLINDAMYCIN 600 MG/54 ML BAG IV SCH; -DPRSO15 TOP; -FERR1TAB61 PO; -GABA-113 PO; +GABAPENTIN 300 MG CAP PO SCH; -INSPMPHMLG; -LOSA1TAB38 PO; +LR 15ML/HR IV SCH; -MAGN250T3 PO; -MRPSR15 PO; -MULT-916 PO; -OMEG120013 PO; -PRLSR20 PO; -SPCCR30 TOP; -WARF-285 PO; -WARF7.5T4 PO; -[UNRECOGNIZED DRUG - CODE] PO; +[UNRECOGNIZED DRUG - REMARK] SCH; +ceFAZolin 2000MG 2,000 MG/15 ML SYR IV SCH
--- OUTSIDE RECORDS SUMMARY | 2020-11-09 07:56 | External Medical Summary | Continuity of Care Document ---
:1955 Author Name Riri Mccall, Provider Address Unavailable Unavailable , Care Team Providers Name Role Phone [facility] Stefany, Provider Unavailable [email or web address] Unavailable Unavailable Problems Active medical history not documented Allergies and Adverse Reactions Allergy history not documented Medications Medications not documented Procedures Procedures not documented Immunizations Immunizations not documented Plan of Treatment Planned Observations Planned Goals not documented Results No Known Results Results not documented
[2020-11-09 08:39] LABS: INR 1.5 (0.9-1.1); Partial Thromboplastin Ratio 1.3; Partial Thromboplastin Time 37.2 Seconds (21.0-31.0); Prothrombin Time 15.7 Seconds (9.0-12.0)
--- NOTE | 2020-11-09 09:12 | History & Physical Bridge Note ---
Date of Service November 09, 2020 History & Physical Bridge Note I have examined the patient, reviewed the History & Physical and in the interval since the performance of the History & Physical I have noted the following changes of clinical significance: no changes noted
--- NOTE | 2020-11-09 09:13 | History & Physical Report ---
Date of Service November 09, 2020 Assessment & Plan (1) Sacroiliitis: Admission and Anticipated Discharge Date Admission Date: Left sacroiliac joint fusion History of Present Illness Chief Complaint: Left SI joint pain Primary Care Provider: Theresa Lloyd DO This is a 65-year-old male who presents with chronic persistent left sacroiliitis. After failing course of nonoperative care is here for surgical invention. Allergies Allergy/AdvReac Type Severity Reaction Status Date / Time Penicillins Allergy Mild Rash Verified 11/09/20 08:21 Diclopak Allergy Unknown AFFECTED Verified 04/13/18 07:02 LIVER FUNCTION azithromycin AdvReac Intermediate Chemical Verified 11/09/20 08:21 hepatitis (when combined with voltaren) capsaicin AdvReac Intermediate Elevated Verified 11/09/20 08:21 LFTs diclofenac AdvReac Intermediate Elevated Verified 11/09/20 08:21 LFTs meperidine AdvReac Intermediate severe N/V Verified 11/09/20 08:21 Home Medications Medication Instructions Recorded Confirmed Type allopurinol 300 mg PO QAM 12/05/18 11/09/20 History atorvastatin 40 mg PO QAM 12/05/18 11/09/20 History ferrous sulfate [iron] 325 mg PO HS 12/05/18 11/09/20 History gabapentin 2 tab PO TID 12/05/18 11/09/20 History insulin aspart U-100 [Novolog 1 dose UD 12/05/18 11/09/20 History U-100 Insulin aspart] losartan 100 mg PO QAM 12/05/18 11/09/20 History magnesium 250 mg PO QPM 12/05/18 11/09/20 History morphine 15 mg PO Q12H 12/05/18 11/09/20 History omega 2-clb-sla-fish oil [Fish Oil] 1 cap PO BID 12/05/18 11/09/20 History omeprazole 40 mg PO QAM 12/05/18 11/09/20 History warfarin 1 tab PO UD 12/05/18 11/09/20 History celecoxib [Celebrex] 200 mg PO QAM 10/13/20 11/09/20 History cholecalciferol (vitamin D3) 25 mcg PO QAM 10/13/20 11/09/20 History [Vitamin D3] Past Med/Surg History Medical History Aortic stenosis Moderate aortic stenosis (VIANNEY 1.2-1.3cm2, MG 15.7-17.6mmhg) per 04/2020 echo Carotid artery stenosis B/L ICA stenosis <50% Degenerative disc disease Diabetes mellitus type 1 + pump Factor 5 Leiden mutation, heterozygous GERD (gastroesophageal reflux disease) Gout [place] filter in place Hyperlipidemia Hypertension Kidney stones hx Osteoarthritis Peripheral neuropathy feet Pulmonary embolism multiple (2013)/dx factor 5 leiden mutation- on warfarin Rheumatic fever at age 7 Sleep apnea CPAP Spinal stenosis Surgical History Fusion of spine lumbar, cervical History of ankle fusion 05/2020 ([facility]) History of cataract surgery R/L History of colonoscopy History of nasal septoplasty History of tooth extraction History of total knee replacement Right TKA: 04/13/18: SAB x 2 attempts (patient with multiple back surgeries, unable to pass needle through) > LMA#5 + PNB at [facility] [place] Hx of toe surgery Left great toe fusion Family History Mother Family history of diabetes mellitus Family/Other Family history of diabetes mellitus NIECE Grandmother (Maternal) No problems noted. Brother Family history of diabetes mellitus Grandmother (Paternal) Family history of diabetes mellitus Social History Smoking Status: Never smoker Second Hand Exposure: Yes (PARENTS SMOKED); Do You Dip or Chew Tobacco: No; Hx Alcohol Use: Yes Alcohol type: beer and hard liquor Hx Substance Use: No Preferred Language: Spanish Communication Ability: Effective Green Building Architect Required: No Beliefs That Will Affect Care: None Current Living Situation: Spouse and Family Other Information That Helps Us Care for You: No Feels Safe at Home: Yes Safety Concerns: Feels Safe At This Time Assistive Devices: Cane, Glasses and Hearing Aid - Bilateral Physical Exam Physical Exam: Patient is alert and oriented Heart regular in rhythm Lungs clear to auscultation Results & Data ([facility]) Vital Signs (Past 12 Hours) Vital Signs Temp Pulse Resp BP Pulse Ox 11/09/20 08:27 36.8 C 88 18 167/73 H 98
[2020-11-09] MEDS ORDERED: GLYCOPYRROLATE 0.2 MG/ML VIAL ONE (09:31)
[2020-11-09] MEDS ORDERED: ROCURONIUM BROMIDE 10 MG/ML 5 ML VIAL IV ONE (09:31)
[2020-11-09] MEDS ORDERED: NEOSTIGMINE METHYLSULFATE 1 MG/ML 10ML VIAL ONE (09:31)
[2020-11-09] MEDS ORDERED: fentaNYL citrate 100 MCG/2 ML VIAL ONE ×3 (09:31→10:50)
[2020-11-09] MEDS ORDERED: MIDAZOLAM HCL 1 MG/ML 2ML VIAL ONE (09:32)
[2020-11-09] MEDS ORDERED: BACITRACIN INJ 50,000 UNIT VIAL ONE (09:33)
[2020-11-09] MEDS ORDERED: BUPIVACAINE/EPINEPHRINE 0.5% MPF 1:200,000 30 ML VIAL ONE (09:33)
[2020-11-09] MEDS ORDERED: ePHEDrine sulfate 50 MG/ML AMP IV PRN (09:45)
[2020-11-09] MEDS ORDERED: ATROPINE SULFATE 0.1 MG/ML 10ML SYR IV PRN (09:45)
[2020-11-09] MEDS ORDERED: ONDANSETRON INJ 2 MG/ML 2 ML VIAL IV PRN (09:45)
[2020-11-09] MEDS ORDERED: HYDROmorphone INJ 2 MG/ML SYR/VIAL IV PRN (09:45)
[2020-11-09] MEDS ORDERED: ePHEDrine sulfate 50 MG/ML SYR ONE (10:17)
[2020-11-09] MEDS ORDERED: ONDANSETRON INJ 2 MG/ML 2 ML VIAL ONE (10:29)
[2020-11-09] MEDS ORDERED: FLOSEAL HEMOSTATIC MATRIX 10ML TOP ONE (10:42)
--- NOTE | 2020-11-09 11:01 | Operative Report ---
Post Operative Report Pre & Post Diagnosis Operation Date: 11/09/20 09:35 Pre-Op Diagnosis: Sacroiliac Joint Dysfuntion Post-Op Diagnosis: Sacroiliac Joint Dysfuntion I identified the patient and participated in the time-out.: Yes Procedure Operation Date: 11/09/20 09:35 Actual Procedures #1 open left SI joint fusion. #2 placement of 25 mm allograft filled with infuse collagen sponge and left SI joint. #3 placement of 3 globus KUMAR-coated slotted screws percutaneously across the left SI joint. Surgeon David Zamudio, DO Credit Assistant Gaby Glover Estimated Blood Loss 25 Findings Consistent with Post-Op Diagnosis Specimens None Indications This is a 65-year-old male known to me the presents with above-mentioned diagnosis after failing course of nonoperative care is here for the above- mentioned procedure. Description of Procedure Patient was met with identified informed consent obtained. Patient was then taken to the operative suite underwent an patient placed in a prone position the Kevin table chest padded bolsters. All bony prominences well-padded eyes inspected to ensure no external pressure placed upon the. This point the left upper buttock was prepped and draped no sterile fashion. The assistance of fluoroscopy identified the SI joint inlet outlet and lateral views. This 3 cm incision was then placed over the left SI joint. I dissected down to the joint placed a guidewire within the joint including the joint finder and ultimately cannula within the joint. I then drilled out and curetted the joint. A 25 mm bony allograft filled with infuse collagen sponge was then tapped into the joint. I then created a second incision along the left upper buttock in line with the posterior sacral slope. A guidewire was then placed across the proximal aspect of the SI joint verifying my position and inlet outlet and lateral views. I then dilated over a guidewire drilled across the joint and placed a 45 mm KUMAR-coated slotted screw filled with local autograft and infuse collagen sponge across the joint. Demonstrated excellent purchase. Using an outrigger guide a second distal guidewire was placed in a similar fashion. I drilled across the SI joint and placed a 40 mm KUMAR-coated screw filled with local autograft and infuse collagen sponge again excellent purchase was noted. Lastly a third screw was placed in a similar fashion. The screw was 30 mm in length KUMAR-coated slotted filled with infuse collagen sponge and local autograft. All screws alignment were verified on fluoroscopy the incisions were then copiously irrigated closed with subcutaneous Vicryl 4 Monocryl for final skin closure. Steri-Strip sterile dressings placed. Patient waken taken PACU stable condition with please note Gaby Glover was present at the entire procedure involved the patient positioning complex portions of the surgery and final skin closure. I attest to the content of the Intraoperative Record and any orders documented therein. Any exceptions are noted below.
--- NOTE | 2020-11-09 11:18 | Fluoroscopy Report ---
FL sacrum CLINICAL HISTORY: Left sacroiliac joint fusion. COMPARISON STUDY: None. FLUOROSCOPY TIME: 1 minute and 43 seconds. FINDINGS: 3 fluoroscopic spot images of the left sacroiliac joint demonstrates fusion with 3 screws. The hardware appears intact. Evidence for lumbosacral spine posterior decompression and fusion. IMPRESSION: Fluoroscopy provided for left sacroiliac joint fusion. ACT 112: Negative or not required by law. Electronically signed by: Corwin Valenzuela M.D. 11/09/2020 11:17 AM
[2020-11-09] MEDS: fentaNYL citrate 100 MCG/2 ML VIAL IV PRN ×2 (11:42→11:47)
--- NOTE | 2020-11-09 12:11 | Anesthesiology Progress Note ---
Date of Service November 09, 2020 Anesthesia Post Procedure Vital Signs Vital Signs: Temp Pulse Pulse Resp BP BP Pulse Ox 11/09/20 12:00 36.4 C L 53 L 14 143/64 H 97 11/09/20 11:50 54 L 14 146/66 H 100 11/09/20 11:40 69 16 146/59 H 99 11/09/20 11:30 71 16 144/58 H 98 11/09/20 11:20 77 14 142/65 H 100 11/09/20 11:14 36.5 C 86 18 140/64 99 11/09/20 08:27 36.8 C 88 18 167/73 H 98 Pain Intensity Left Hip: Pain Intensity: 2 Transfer of Care Handoff Completed per policy Notes Mental Status: alert / awake / arousable and participated in evaluation Patient Amnestic to Procedure: Yes Nausea / Vomiting: adequately controlled Pain: adequately controlled Airway Patency, RR, SpO2: stable & adequate BP & HR: stable & adequate Hydration State: stable & adequate Anesthetic Complications: no major complications apparent and Pt Satisfied with anesthetic care
[2020-11-09] MEDS ORDERED: oxyCODONE HCL IR 5 MG TAB (IMMEDIATE RELEASE) ONE (12:58)
== END 2020-11-09 13:15 | disposition home or self-care (01) | DRG 460 ==
LOC: ASU 07:52 → EDINP 08:30 → ASU 13:15